=== PATIENT | female | born 1970 | race Hispanic/Latino ===

== ENCOUNTER 2017-02-23 10:12 | Outpatient (CLI) | payer OTHER ==
--- NOTE | 2017-02-23 10:42 | Mammography Report ---
Screening mammogram: Routine views compared to her prior study in December 2015. The patient has a heterogeneously dense and symmetrically distributed fibroglandular pattern. There are numerous scattered benign appearing calcifications in the right breast which appear unchanged. There however is a grouping of coarser calcifications in the central breast that were not apparent on prior exam. In addition there is a partially circumscribed nodule in the central breast that is not previously identified. The remainder the breast pattern bilaterally is unchanged in generally unremarkable for any suspicious findings. CAD used. Impressions: Right breast asymmetry in the right breast calcifications. Recommendation: Magnification views of the calcifications with spot compression imaging of the nodule. Ultrasound as needed. BI-RADS CATEGORY: 0 = Needs additional imaging evaluation ACR BI-RADS MAMMOGRAPHIC CODES: 0 = Needs additional imaging evaluation; 1 = Negative; 2 = Benign; 3 = Probably benign; 4 = Suspicious; 5 = Malignant; 6 = Known biopsy-proven malignancy COMMENT: 1. Dense breast tissue, i.e., adenosis, fibrocystic changes, etc., may obscure an underlying neoplasm. 2. Approximately 10% of cancers are not detected with mammography. 3. A negative mammography report should not delay biopsy if a clinically suspicious mass is present.
== END 2017-02-23 10:13 | disposition home or self-care (01) ==
LOC: SPVWC 10:12
PROVIDERS: ATTEND Obstetrics & Gynecology
DX: Z12.31 Encounter for screening mammogram for malignant neoplasm of breast (principal)
CPT/HCPCS: 77067; G0202

== ENCOUNTER 2017-03-10 10:07 | Outpatient (CLI) | payer OTHER ==
--- NOTE | 2017-03-10 10:50 | Mammography Report ---
RIGHT DIGITAL DIAGNOSTIC MAMMOGRAM : 03/10/17 10:07:00 CLINICAL: Recall to evaluate calcifications and an asymmetry. COMPARISON:02/23/17 FINDINGS: LM and LM and CC magnification views demonstrate widely scattered predominantly punctate calcifications with no suspicious forms. No layering. No associated mass or architectural distortion. Satisfactory effacement of the previously described asymmetry. IMPRESSION: Extensive benign calcifications and no suspicious finding. BI-RADS CATEGORY: 2 - - Benign RECOMMENDATION: Routine mammographic screening in one year. ACR BI-RADS MAMMOGRAPHIC CODES: 0 = Needs additional imaging evaluation; 1 = Negative; 2 = Benign; 3 = Probably benign; 4 = Suspicious; 5 = Malignant; 6 = Known biopsy-proven malignancy COMMENT: 1. Dense breast tissue, i.e., adenosis, fibrocystic changes, etc., may obscure an underlying neoplasm. 2. Approximately 10% of cancers are not detected with mammography. 3. A negative mammography report should not delay biopsy if a clinically suspicious mass is present. COMMENT: Patient follow-up letters are generated by our [employer] application.
== END 2017-03-10 10:08 | disposition home or self-care (01) ==
LOC: SPVWC 10:07
PROVIDERS: ATTEND Obstetrics & Gynecology
DX: R92.1 Mammographic calcification found on diagnostic imaging of breast (principal)
CPT/HCPCS: G0206-RT